=== PATIENT | male | born 1980 | race Caucasian/White ===

== ENCOUNTER 2021-10-29 13:19 | Emergency (ER) | payer BC, SELFPAY ==
--- NOTE | ~2021-10-29 | XR_ITS ---
EXAMINATION: XR lumbar spine 2-3V DATE: 10/29/2021 14:12 INDICATION: Low back pain TECHNIQUE: Anteroposterior and lateral views of the lumbar spine, and cone-down lateral view of the l umbosacral junction were obtained. COMPARISON: 01/30/2019 FINDINGS: There is mild loss of intervertebral disc space height at L4-5. Vertebral body heights and alignment are normal. There is no fracture. IMPRESSION: 1. Mild lumbar spondylosis without acute findings. Reviewed, dictated and finalized at location A.
[2021-10-29 13:20] VITALS: BP 149/80; PULSE 77; RESP 18; TEMP 36.1; O2SAT 97
--- NOTE | 2021-10-29 13:57 | ED.BACK ---
HPI - Back Pain/Injury General Chief Complaint: Back Pain/Injury Stated Complaint: back pain Time Seen by Provider: 10/29/21 13:32 History of Present Illness HPI Narrative: 40-year-old male presents the emergency room a cute onset of low back pain that radiates into his left gluteal region. Patient states standing for long peers of time exacerbates the pain. Patient states that he has been trying ibuprofen to relieve his symptoms without resolution. Related Data Allergies Allergy/AdvReac Type Severity Reaction Status Date / Time nickel Allergy Mild rash Verified 10/29/21 13:39 Review of Systems Review of Systems: CONSTITUTIONAL: Denies fever, chills, or sweats. EYES: Denies visual changes, redness, or discharge. ENT: Denies rhinorrhea, congestion, sore throat, or otalgia. CARDIOVASCULAR: Denies chest pain, palpitations, or edema. RESPIRATORY: Denies cough or dyspnea. GASTROINTESTINAL: Denies abdominal pain, nausea, vomiting, or diarrhea. GENITOURINARY: Denies dysuria or hematuria. SKIN: Denies rash or itching. MUSCULOSKELETAL: Low back pain, left gluteal pain NEUROLOGIC: Denies headache, numbness, dizziness, or weakness. PSYCHIATRIC: Denies anxiety or depression. Exam Narrative: GENERAL: Well-appearing, well-nourished, and in no acute distress. HEAD: Normocephalic, atraumatic. EYES: PERRLA and EOMI. CHEST: Clear to auscultation. No respiratory distress. No wheezes rales or rhonchi HEART: Regular rate and rhythm. No murmur heard. Normal peripheral pulses. EXTREMITIES: Normal range of motion. No edema. Tenderness into the left gluteal muscle; - SLR BACK: No midline tenderness, no step-offs, full range of motion to the lumbar spine SKIN: Warm, dry, no rash. NEURO: No focal deficits. Alert and oriented x3. PSYCH: Normal mood and affect. Course Vital Signs Vital signs: Vital Signs Temperature 36.1 C L 10/29/21 13:20 Pulse Rate 77 10/29/21 13:20 Respiratory Rate 18 10/29/21 13:20 Blood Pressure 149/80 H 10/29/21 13:20 Pulse Oximetry 97 10/29/21 13:20 Temperature 36.1 C L 10/29/21 13:20 Pulse Rate 77 10/29/21 13:20 Respiratory Rate 18 10/29/21 13:20 Blood Pressure 149/80 H 10/29/21 13:20 Pulse Oximetry 97 10/29/21 13:20 MDM - Back Pain/Injury Lab Data Labs: Lab Results 10/29/21 Range/Units 14:14 Urine Color Yellow (Yellow) Urine Appearance Clear (Clear) Urine pH 7.0 (5.0-9.0) Ur Specific [place] 1.025 (1.001-1.035) Urine Protein Negative (Negative) mg/dL Urine Glucose (UA) Negative (Negative) mg/dL Urine Ketones Negative (Negative) mg/dL Ur Blood (Man) Negative (Negative) Urine Nitrate Negative (Negative) Urine Bilirubin Negative (Negative) Urine Urobilinogen 0.2 (<2.0) mg/dL Leukocyte Esterase Rfl Negative (Negative) KRISHNA/UL Discharge Plan Discharge Clinical Impression: Lumbar radiculopathy Patient Disposition: Home, Self-Care Condition: Stable Instructions: Antibiotic Form, Acute Low Back Pain (ED) Additional Instructions: Take medications as prescribed. May apply a heating pad to affected area. Recommend resting from strenuous activities until the pain is resolved. Suspect you have a piriformis syndrome Prescriptions: New prednisone 50 mg tablet 50 mg PO DAILY Qty: 5 RF: 0 methocarbamol 750 mg tablet 750 mg PO TID Qty: 20 RF: 0 Follow-up/Referrals: PHYSICIAN,[facility] [employer] [Primary Care Provider] - Jhony Baca MD [Physician] - Time of Disposition: 14:46
[2021-10-29 14:28] LABS: Add Urine Microscopic? NO; Appearance Urine Clear (Clear); Bilirubin Urine Negative (Negative); Blood Urine Negative (Negative); Color Urine Yellow (Yellow); Glucose Urine UA Negative (Negative); Ketones Urine Negative (Negative); Leukocyte Esterase Ur Negative LEU/UL (Negative); Nitrate Urine Negative (Negative); Protein Urine Negative (Negative); Specific Grav Ur 1.025 (1.001-1.035); Urobilinogen Urine 0.2 mg/dL (<2.0)
[2021-10-29] MEDS: methocarbamoL 500 MG TABLET PO (14:28)
== END 2021-10-29 14:55 | disposition home or self-care (01) ==
PROVIDERS: Emergency Provider Nurse Practitioner Family
DX: M54.16 Radiculopathy, lumbar region (principal)
CPT/HCPCS: 72100; 81003; 96372; 99283; A9270; J1100